=== PATIENT | female | born 1930 | race Hispanic/Latino ===

== ENCOUNTER 2018-03-03 15:31 | Emergency (ER) | payer OTHER ==
--- OUTSIDE RECORDS SUMMARY | 2018-03-03 15:33 | XMS REPORT | Clinical Summary ---
:1930 Author Organization [facility] Address [address] [place] [address] Care Team Providers Name Role Phone Salvatore Goldsmith MD Primary Care Provider Allergies Active Allergy Reactions Severity Noted Date Comments Codeine Hives High 11/07/2016 Fenofibrate 11/09/2016 dizziness Hydrocodone 11/09/2016 dizziness Penicillins Itching 11/09/2016 Current Medications Prescription Sig. Disp. Refills Start Date End Date Status lovastatin (MEVACOR) 20 Take 20 mg by mouth Active MG tablet every morning. metoprolol tartrate Take 50 mg by mouth Active (LOPRESSOR) 50 mg tablet 2 (two) times a day. valsartan (DIOVAN) 320 MG Take 320 mg by Active tablet mouth every morning. [id number]-lycopen-l Take 1 tablet by Active utein (CENTRUM SILVER) mouth every 0.4-300-250 mg-mcg-mcg morning. tablet amLODIPine (NORVASC) 5 mg Take 5 mg by mouth Active tablet daily. Active Problems Problem Noted Date Left renal mass 11/22/2016 Social History Tobacco Use Types Packs/Day Years Used Date Never Smoker Smokeless Tobacco: Never Used Alcohol Use Drinks/Week oz/Week Comments No Sex Assigned at Date Recorded Not on file Last Filed Vital Signs Not on file Plan of Treatment Health Maintenance Due Date Last Done Comments SHINGRIX VACCINE (#1) 1979 ZOSTER VACCINE 1989 PNEUMOCOCCAL POLYSACCHARIDE VACCINE AGE 65 AND OVER 1994 PNEUMOCOCCAL-13 1994 INFLUENZA VACCINE 04/16/2018 Implants Implanted Type Area Associate Professor Of Art Device Expiration Model / Identifier Date Serial / Lot Clip Heena [employer] [facility] - [id number] Surgical N/A: N/A WECK CLOSURE [id number] / Implanted: 11/22/2016 (Quantity not on file) Implants; SYSTEMS / Expanders; Extenders; Surgical Wires Results Not on fileafter 03/02/2017 Insurance Payer Benefit Plan / Group Subscriber ID Type Phone Address [facility] xxxxxxxxx HMO [phone] [facility] [address] [place] [id number]
--- NOTE | 2018-03-03 16:28 | RAD REPORT ---
EXAM DESCRIPTION: CT - [id number] - 03/03/2018 3:58 pm CLINICAL HISTORY: Fall, head, neck and facial trauma COMPARISON: CT head and cervical January 2013, MRI January 2013 TECHNIQUE: Axial 5 mm thick images of the head were obtained. Axial 2 mm thick images of the cervic al spine were obtained with sagittal and coronal reconstruction images generated and reviewed. All CT scans are performed using dose optimization technique as appropriate and may include automated exposure control or mA/KV adjustment according to patient size. FINDINGS: No intracranial hemorrhage, new mass, edema or acute intracranial finding. No acute cortic al based infarction. No cortical edema or sulcal effacement. No extra-axial fluid collections. Mastoi d air cells are clear. Facial bones , orbital contents and sinuses are separately detailed. Approxima tely 22 x 13 millimeter supra sella hyperdense masses present. This is not a new finding. 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 Size may have increased fractionally from prior imaging. No new ma ss effect in this region. Patient has underlying atrophy and chronic ischemic change. Cervical bodies are normal in height. No fracture or acute cervical body finding. No new alignment ab normality. Slight retrolisthesis of C5 on C6 is a chronic finding. Significant C5-6 and C6-7 disc spa ce narrowing present. Uncovertebral joint hypertrophy present. There is significant bilateral foramin al stenosis at C5-6 with spinal stenosis down to 6 mm. Bilateral foraminal stenosis present at C6-7. Thickening and calcification of the transverse ligament posterior to the dens noted. More mild forami nal bony stenosis present at C4-5. Central canal detail is inherently limited. No paraspinal mass or hematoma. IMPRESSION: No hemorrhage, mass or acute intracranial finding. Atrophy and chronic ischemic changes are present. Approximately 22 x 13 mm supra sella mass measuring similar to slightly larger than 2013. 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 Size change, if true, is minimal from 2013. No fracture or acute cervical spine finding. Significant spinal stenosis at C5-6 with multiple level s showing significant bony foraminal stenosis. Degenerative changes are not substantially different f rom 2013. Facial bones, sinuses and orbits are separately detailed.
--- NOTE | 2018-03-03 16:33 | RAD REPORT ---
EXAM DESCRIPTION: CT - Facial Bones W/ Mpr - 03/03/2018 3:58 pm CLINICAL HISTORY: Fall, facial trauma COMPARISON: CT head and cervical same date TECHNIQUE: Axial 2 millimeter thick images of the facial bones were obtained with sagittal and coron al reconstruction imaging. All CT scans are performed using dose optimization technique as appropriate and may include automated exposure control or mA/KV adjustment according to patient size. FINDINGS: Mastoid air cells are clear. No fracture of the skullbase identifiable. Left zygomatic arc h is intact. Condyles of the mandible is normally positioned on the left. No orbital wall fracture id entifiable. There is fracture of the lateral wall maxillary sinus near the orbital floor. There is an air-fluid level in the left maxillary sinus. The there is buckling inward of the anterior wall of th e maxillary sinus on the left. No acute nasal septum finding. Medial sinus wall is intact. No displac ed nasal bone fracture. No globe or orbital content acute finding. There is significant left maxilla and periorbital contusion. No foreign body. No fracture of the mandible. Condyles are normally positioned. IMPRESSION: Anterior and lateral left maxillary sinus wall fractures with blood in the sinus. No orbital wall fracture confirmed in the zygomatic arch is intact on the left. Significant contusion and edema changes of the left maxilla and periorbital soft tissues.
[2018-03-03] MEDS ORDERED: NA CHLORIDE 0.9% 0 ML ONE (16:35)
[2018-03-03 16:44] LABS: Absolute Lymphocytes (CBC) 2.6 K/uL (0.7-4.9); Absolute Monocytes 0.9 K/uL (0.1-1.3); Absolute Neutrophil 3.7 K/uL (1.8-8.0); Basophils % 0.7 % (0-1.3); Eosinophils % 1.5 % (0-4.4); Hematocrit 34.1 % (36.0-45.0); Lymphocytes % 35.5 % (15.3-44.8); MCH 30.8 pg (27.0-35.0); MCV 90.2 fL (80-100); MPV 8.6 fL (7.6-11.3); Monocytes % 11.7 % (3.3-12.3); RBC Red Blood Cell Count 3.78 M/uL (3.86-4.86)
[2018-03-03] MEDS ORDERED: METOPROLOL TAR 50 MG TAB ONE (16:45)
[2018-03-03] MEDS ORDERED: AMOX/K CLAV 875 MG TAB ONE (16:46)
[2018-03-03] MEDS ORDERED: LIDOCAINE 1% MPF 2 ML AMPULE ONE (16:46)
[2018-03-03] MEDS ORDERED: TETANUS & DIPHTHERIA TOX,ADULT 0.5 ML VIAL ONE (16:46)
[2018-03-03 16:48] LABS: Protime INR 0.93
[2018-03-03] MEDS ORDERED: CLINDAMYCIN HCL 150 MG CAP ONE (16:48)
--- NOTE | 2018-03-03 16:55 | RAD REPORT ---
EXAM DESCRIPTION: RAD - Chest Single View - 03/03/2018 4:21 pm CLINICAL HISTORY: Fall, chest pain COMPARISON: October 2017 TECHNIQUE: AP portable chest image was obtained 1601 hours . FINDINGS: No pulmonary contusion or acute lung parenchymal process. Heart and vasculature are normal . No measurable pleural effusion and no pneumothorax. Old rib trauma noted in the right-sided chest. Granuloma seen mid left lung field. An acute bone process is not suspected. No acute aortic findings suspected. IMPRESSION: No acute cardiopulmonary process. No significant change from comparison.
--- NOTE | 2018-03-03 16:55 | RAD REPORT ---
EXAM DESCRIPTION: RAD - Pelvis - 03/03/2018 4:21 pm CLINICAL HISTORY: Fall, pelvic and hip pain COMPARISON: None. TECHNIQUE: AP imaging of the pelvis was obtained. FINDINGS: No pelvic fracture. No fracture or dislocation of either proximal femur. Minimal SI joint degenerative change present. Phleboliths are seen in the left side pelvis. No suspicious soft tissue finding. IMPRESSION: Negative pelvis for acute or significant finding.
--- NOTE | 2018-03-03 16:57 | RAD REPORT ---
EXAM DESCRIPTION: RAD - Humerus Left - 03/03/2018 4:21 pm CLINICAL HISTORY: Fall, shoulder and arm pain COMPARISON: None. FINDINGS: No fracture is identified. There is no dislocation or periosteal reaction noted. No forei gn body or other soft tissue abnormality. IMPRESSION: Negative left humerus examination.
[2018-03-03 16:58] LABS: Urine Blood TRACE (NEG); Urine Glucose NEGATIVE (NEG); Urine Protein 1+ (NEG); Urine Specific Gravity 1.015 (1.005-1.030); Urine pH 5.5 (5.0-7.0)
--- NOTE | 2018-03-03 16:58 | RAD REPORT ---
EXAM DESCRIPTION: RAD - Hand Left 3 View - 03/03/2018 4:21 pm CLINICAL HISTORY: Fall, hand pain COMPARISON: None. FINDINGS: No fracture, dislocation or periosteal reaction noted. No acute or destructive bone proces s. Patient has advanced degenerative change involving the third MCP joint. Degenerative calcification s are seen in the triangular fibrocartilage. Elsewhere IP joint degenerative changes are present with out erosive or destructive component. No air or foreign body in the soft tissues. IMPRESSION: Degenerative changes are present most notable at the third MCP joint. No fracture or acute finding seen.
--- NOTE | 2018-03-03 17:55 | EDPHYS ---
Physician Documentation [facility] Name: Estephania Denise Age: 87 yrs Sex: Female : 1930 Arrival Date: 03/03/2018 Time: 15:36 Bed 17 Private MD: ED Physician Gil Ruvalcaba HPI: 03/03 15:45 This 87 yrs old Female presents to ER via EMS with complaints of Head Injury cp Without LOC-Adult, Laceration To Head. 15:45 The patient or guardian reports injury, a laceration. The complaints affect the left cp cheek and left latter day. Context of injury: resulted from slip and fall on wet surface. Onset: The symptoms/episode began/occurred just prior to arrival. Associated signs and symptoms: Loss of consciousness: This patient did not experience any loss of consciousness. Historical: - Allergies: 15:40 Codeine; sv 15:40 PENICILLINS; sv - Home Meds: 15:44 metoprolol tartrate 50 mg Oral tab 1 tab 2 times per day [Active]; lovastatin 20 mg tw2 Oral tab 1 tab once daily [Active]; amlodipine 5 mg tab 1 tab once daily [Active]; valsartan 320 mg oral tab 1 tab once daily [Active]; gemfibrozil 600 mg Oral tab 1 tab 2 times per day [Active]; - PMHx: 15:40 Hypertension; sv 15:44 Hyperlipidemia; tw2 - Immunization history:: Adult Immunizations up to date. - Social history:: Smoking status: Patient/guardian denies using tobacco. - Immunization history: Last tetanus immunization: unknown. - Ebola Screening: : No symptoms or risks identified at this time. ROS: 15:50 Constitutional: Negative for body aches, chills, fever, poor PO intake. cp 15:50 Eyes: Negative for injury, pain, redness, and discharge. cp 15:50 ENT: Negative for drainage from ear(s), sore throat, difficulty swallowing, difficulty handling secretions. 15:50 Cardiovascular: Negative for chest pain, edema, palpitations. 15:50 Respiratory: Negative for cough, shortness of breath, wheezing. 15:50 Abdomen/GI: Negative for abdominal pain, nausea, vomiting, and diarrhea, constipation, black/tarry stool, rectal bleeding. 15:50 MS/extremity: Positive for pain, of the left arm, Negative for deformity, paresthesias. 15:50 Neuro: Negative for altered mental status, headache, loss of consciousness. 15:50 All other systems are negative. Exam: 16:02 Constitutional: The patient appears in no acute distress, alert, awake, cp non-diaphoretic, non-toxic, well developed, well nourished. 16:02 Eyes: Pupils equal round and reactive to light, extra-ocular motions intact. Lids and cp lashes normal. Conjunctiva and sclera are non-icteric and not injected. Cornea within normal limits. Left lower orbital area with swelling, edema, tenderness 16:02 Head/face: Noted is ecchymosis, that is mild, of the left cheek, a laceration(s), that is deep, that is linear, of the lateral to left eye, swelling, that is mild, of the left cheek, tenderness, that is moderate, of the left cheek, Sinus tenderness, that is moderate, is located over the left maxillary sinus. 16:02 ENT: External ear(s): are unremarkable, Ear canal(s): are normal, clear, TM's: bulging, is not appreciated, bilaterally, dullness, bilaterally, erythema, is not appreciated, bilaterally, Nose: is normal, Mouth: Lips: moist, Oral mucosa: pink and intact, moist, Posterior pharynx: is normal, airway is patent, no erythema, no exudate, Dental exam: no acute changes, Voice: is normal. 16:02 Neck: C-spine: C-collar placed in ED, vertebral tenderness, is not appreciated, crepitus, is not appreciated, ROM/movement: limited range of motion, is not appreciated, nuchal rigidity, is not appreciated. 16:02 Chest/axilla: Inspection: normal, Palpation: is normal, no crepitus, no tenderness. 16:02 Cardiovascular: Rate: normal, Rhythm: regular, Pulses: Pulses are 2+ in right radial artery and left radial artery. Edema: is not appreciated, JVD: is not appreciated. 16:02 Respiratory: the patient does not display signs of respiratory distress, Respirations: normal, no use of accessory muscles, no retractions, no splinting, no tachypnea, Breath sounds: are clear throughout, no decreased breath sounds, no stridor, no wheezing. 16:02 Abdomen/GI: Inspection: abdomen appears normal, Bowel sounds: active, all quadrants, Palpation: abdomen is soft and non-tender, in all quadrants, rebound tenderness, is not appreciated, voluntary guarding, is not appreciated, involuntary guarding, is not appreciated. 16:02 Back: pain, is absent, ROM is normal, vertebral tenderness, is not appreciated, Straight leg raises: of both lower extremities does not illicit pain. 16:02 Musculoskeletal/extremity: Extremities: grossly normal except: noted in the left upper arm: tenderness, There is no evidence of deformity, Sensation intact. Joints: All joints are normal except the left shoulder displays painful range of motion, tenderness. 16:02 Skin: cellulitis, is not appreciated, no rash present. 16:02 Neuro: Orientation: to person, place \T\ time. Mentation: lucid, able to follow commands, Cerebellar function: is grossly normal, Sensation: no obvious gross deficits. 16:32 ECG was reviewed by the Attending Physician. cp Vital Signs: 15:40 BP 204 / 84; Pulse 81; Resp 18; Temp 97.7; Pulse Ox 97% ; Weight 62.14 kg; Height 5 ft. sv 0 in. (152.40 cm); Pain 4/10; 16:48 BP 199 / 81; Pulse 88; Resp 18; Temp 97.8; Pulse Ox 98% ; sv 17:15 BP 193 / 80; Pulse 74; Resp 18; Pulse Ox 99% ; sv 18:11 BP 190 / 84; Pulse 61; Resp 18; Temp 97.8; Pulse Ox 99% ; sv 15:40 Body Mass Index 26.76 (62.14 kg, 152.40 cm) sv 16:48 Pt just returned from CT and xray. sv 18:11 Informed Gil QUICK of vitals, ok to discharge. sv Cotter Coma Score: 15:40 Eye Response: spontaneous(4). Verbal Response: oriented(5). Motor Response: obeys sv commands(6). Total: 15. 16:48 Eye Response: spontaneous(4). Verbal Response: oriented(5). Motor Response: obeys sv commands(6). Total: 15. Trauma Score (Adult): 15:40 Eye Response: spontaneous(1); Verbal Response: oriented(1); Motor Response: obeys sv commands(2); Systolic BP: > 89 mm Hg(4); Respiratory Rate: 10 to 29 per min(4); Cotter Score: 15; Trauma Score: 12 16:48 Eye Response: spontaneous(1); Verbal Response: oriented(1); Motor Response: obeys sv commands(2); Systolic BP: > 89 mm Hg(4); Respiratory Rate: 10 to 29 per min(4); Peggy Score: 15; Trauma Score: 12 Laceration: 17:25 Wound Repair of 2.5cm ( 1.0in ) subcutaneous laceration to left latter day. Linear shaped.. cp Distal neuro/vascular/tendon intact. Anesthesia: Wound infiltrated with 4 mls of 1% lidocaine w/ Epi. Wound prep: Moderate cleansing by me. Skin closed with 6-0 Prolene using interrupted sutures and sterile technique. Dressed with Bacitracin, bandaid. Patient tolerated well. MDM: 15:38 Patient medically screened. [facility] 17:50 Data reviewed: vital signs, nurses notes, lab test result(s), EKG, radiologic studies, cp CT scan, plain films. 17:50 Test interpretation: by ED physician or midlevel provider: ECG. Response to treatment: the patient's symptoms have markedly improved after treatment, and as a result, I will discharge patient. 03/03 15:41 Order name: Basic Metabolic Panel; Complete Time: 17:21 03/03 17:22 Interpretation: Normal except: BUN 38; CRE 1.69; GFR 29. 03/03 15:41 Order name: CBC with Diff; Complete Time: 17:21 03/03 17:22 Interpretation: Normal except: RBC 3.78; HGB 11.7; HCT 34.1. 03/03 15:41 Order name: Creatinine for Radiology; Complete Time: 17:21 03/03 15:43 Order name: PT-INR; Complete Time: 17:21 03/03 15:43 Order name: Ptt, Activated; Complete Time: 17:21 03/03 15:41 Order name: CT Head C Spine; Complete Time: 17:21 03/03 17:23 Interpretation: Reviewed report. 03/03 15:41 Order name: CT Facial Bones W/O Con; Complete Time: 17:21 03/03 17:23 Interpretation: Report reviewed. 03/03 15:41 Order name: XRAY Chest (1 view); Complete Time: 17:21 cp 06/18 15:41 Order name: XRAY Pelvis; Complete Time: 17:21 cp /18 17:24 Interpretation: Report reviewed. cp /18 15:41 Order name: XRAY Humerus LEFT; Complete Time: 17:21 cp /18 17:24 Interpretation: Report reviewed. cp /18 15:41 Order name: XRAY Hand LEFT 3 View; Complete Time: 17:21 cp /18 17:23 Interpretation: Report reviewed. cp /18 16:51 Order name: Urine Dipstick--Ancillary (enter results); Complete Time: 17:21 bd 18 15:38 Order name: C-Collar; Complete Time: 15:39 tw2 03/03 15:41 Order name: Labs collected and sent; Complete Time: 16:40 cp /18 15:41 Order name: Urine Dipstick-Ancillary (obtain specimen); Complete Time: 16:40 cp 18 15:42 Order name: EKG; Complete Time: 15:42 cp 18 15:42 Order name: EKG - Nurse/Tech; Complete Time: 17:08 cp /18 16:43 Order name: Prolene, Sutures; Complete Time: 16:58 cp /18 16:43 Order name: Dressing - Wound; Complete Time: 17:46 cp /18 16:43 Order name: Gloves, Sterile; Complete Time: 16:58 cp /18 16:43 Order name: Setup Suture Tray; Complete Time: 16:58 cp /18 17:37 Order name: Misc. Order: ambulate patient; Complete Time: 17:46 cp EC:32 Rate is 74 beats/min. Rhythm is regular. FL interval is normal. QRS interval is normal. cp QT interval is normal. No ST changes noted. Interpreted by me. Reviewed by me. Administered Medications: 16:35 Not Given (Physician Discretion): morphine 2 mg IVP once; if needed for pain iw 16:36 Not Given (Physician Discretion; IV infiltration): NS 0.9% 250 ml IV at bolus once iw 16:36 Not Given (Physician Discretion; IV infiltration ): NS 0.9% 1000 ml IV at 75 ml/hr iw continuous 16:36 Not Given (Physician Discretion): Zofran 4 mg IVP once; over 2 minutes iw 16:57 Drug: Clindamycin 300 mg Route: PO; sv 17:06 Follow up: Response: No adverse reaction sv 16:58 Drug: Tetanus-Diphtheria Toxoid Adult 0.5 ml {Three Knife Trimmer: [place]. Exp: sv 05/15/2020. Lot #: [id number]. } Route: IM; Site: right deltoid; 17:06 Follow up: Response: No adverse reaction sv 16:58 Drug: Metoprolol TARTRATE (Lopressor) 50 mg Route: PO; sv 17:07 Follow up: Response: No adverse reaction sv 17:06 Drug: Lidocaine-Epinephrine -1%: (1:100,000) 5 ml {Note: given to Gil QUICK for sv procedure.} Volume: 20 ml; Route: Infiltration; Disposition: 03/04 06:54 Co-signature as Attending Physician, Gil Ruvalcaba MD I agree with the assessment and lion plan of care. Disposition: 03/03/18 17:54 Discharged to Home. Impression: Other slipping, tripping and stumbling and falls, Maxillary fracture, unspecified, Laceration w/o foreign body of face. - Condition is Stable. - Discharge Instructions: Head Injury, Adult, Fall Prevention and Home Safety, Facial Laceration. - Prescriptions for Clindamycin HCl 300 mg Oral Capsule - take 1 capsule by ORAL route every 6 hours for 10 days; 40 capsule. - Medication Reconciliation Form, Thank You Letter, Antibiotic Education, Prescription Opioid Use form. - Follow up: Tiara Denise MD; When: 1 - 2 days; Reason: left maxillary sinus fracture. - Problem is new. - Symptoms have improved. - Notes: no sneezing or blowing nose Signatures: Dispatcher [employer] EDAK Tiara Singh, Gil Llanos RN, MD MD cha Page, Corey, PA PA cp Wise, Tara, RN RN tw2 May Rizvi RN iw Corrections: (The following items were deleted from the chart) 03/03 16:54 15:41 TYPE AND SCREEN+[id number] ordered. EDAK EDMS 17:31 17:25 Dressing - Wound ordered. [facility] 18:13 17:54 03/03/2018 17:54 Discharged to Home. Impression: Other slipping, tripping and sv stumbling and falls; Maxillary fracture, unspecified; Laceration w/o foreign body of face. Condition is Stable. Forms are Medication Reconciliation Form, Thank You Letter, Antibiotic Education, Prescription Opioid Use. Follow up: Tiara Denise; When: 1 - 2 days; Reason: left maxillary sinus fracture. Problem is new. Symptoms have improved. cp
--- NOTE | 2018-03-03 17:55 | ER ---
Nurse's Notes [facility] Name: Estephania Denise Age: 87 yrs Sex: Female : 1930 Arrival Date: 03/03/2018 Time: 15:36 Bed 17 Private MD: Diagnosis: Other slipping, tripping and stumbling and falls;Maxillary fracture, unspecified;Laceration w/o foreign body of face Presentation: 03/03 15:26 Presenting complaint: EMS states: tripped and fell on the wet concrete outside. sv Laceration to the left temporal area, with bruising and hematoma noted there and under the left eye. Denies LOC. c/o pain to the left shoulder and arm. BP 191/95 HR 82 RR 20 98% RA, BS-139. Transition of care: patient was not received from another setting of care. Onset of symptoms was March 03, 2018. 15:26 Method Of Arrival: EMS: [facility] sv 15:26 Acuity: JOE 3 sv 15:26 Mechanism of Injury: Fall from standing position. Trauma event details: Injury occurred sv in the [facility], Injury occurred: in a public building. Injury occurred: March 03, 2018. 15:27 Risk Assessment: Do you want to hurt yourself or someone else? Patient reports no sv desire to harm self or others. Initial Sepsis Screen: Does the patient meet any 2 criteria? No. Patient's initial sepsis screen is negative. Does the patient have a suspected source of infection? No. Patient's initial sepsis screen is negative. Care prior to arrival: gauze and tape applied to the left temporal area by EMS. Triage Assessment: 15:30 General: Appears in no apparent distress. comfortable, Behavior is calm, cooperative, sv appropriate for age. Pain: Complains of pain in left eye, left yarsanism and left arm Pain currently is 4 out of 10 on a pain scale. EENT: No signs and/or symptoms were reported regarding the EENT system. Neuro: Level of Consciousness is awake, alert, obeys commands, Oriented to person, place, time, situation, Moves all extremities. Speech is normal. Respiratory: Respiratory effort is even, unlabored, Respiratory pattern is regular, symmetrical. Derm: Skin is pink, warm \T\ dry. Bruising that is dark purple, on left eye. Musculoskeletal: Range of motion: intact in all extremities. Injury Description: Laceration sustained to left yarsanism is 0.5 to 2.5 cm long, not bleeding, no active bleeding noted at this time. Trauma Activation: Not Applicable Physician: ED Physician; Name: ; Notified At: ; Arrived At: Physician: General Surgeon; Name: ; Notified At: ; Arrived At: Physician: Radiology; Name: ; Notified At: ; Arrived At: Physician: Respiratory; Name: ; Notified At: ; Arrived At: Physician: Lab; Name: ; Notified At: ; Arrived At: Historical: - Allergies: 15:40 Codeine; sv 15:40 PENICILLINS; sv - Home Meds: 15:44 metoprolol tartrate 50 mg Oral tab 1 tab 2 times per day [Active]; lovastatin 20 mg tw2 Oral tab 1 tab once daily [Active]; amlodipine 5 mg tab 1 tab once daily [Active]; valsartan 320 mg oral tab 1 tab once daily [Active]; gemfibrozil 600 mg Oral tab 1 tab 2 times per day [Active]; - PMHx: 15:40 Hypertension; sv 15:44 Hyperlipidemia; tw2 - Immunization history:: Adult Immunizations up to date. - Social history:: Smoking status: Patient/guardian denies using tobacco. - Immunization history: Last tetanus immunization: unknown. - Ebola Screening: : No symptoms or risks identified at this time. Screenin:44 Abuse screen: Denies threats or abuse. Denies injuries from another. Nutritional sv screening: No deficits noted. Tuberculosis screening: No symptoms or risk factors identified. Fall Risk None identified. Primary Survey: 15:26 A: Airway: patent. Breathing/Chest: Respiratory pattern: regular, Respiratory effort: tw2 spontaneous, unlabored, Breath sounds: clear, Chest inspection: symmetrical rise and fall of the chest. Circulation: Heart tones present. Skin temperature: warm. Disability Alert. 16:48 A: Airway: patent. A: room air. Breathing/Chest: Respiratory pattern: regular. tw2 Breathing/Chest: Respiratory pattern: regular, Respiratory effort: spontaneous, unlabored, Breath sounds: clear, Chest inspection: symmetrical rise and fall of the chest. Circulation: Heart tones present. Skin temperature: warm, dry. Reassessment Airway Airway Patent Breathing/Chest Respiratory pattern Regular Respiratory effort Spontaneous Unlabored Breath sounds Clear Chest inspection Symmetrical Circulation Heart tones Present Temperature Warm Dry Disability Alert. Secondary Survey: 15:26 HEENT: Eyes: Edema noted left lower eyelid and left eye. Gastrointestinal: No deficits tw2 noted. Gastrointestinal: Abdomen is soft, Bowel sounds present in all quadrants. : No signs and/or symptoms were reported regarding the genitourinary system. Musculoskeletal: Range of motion: intact in all extremities. Injury Description: Laceration sustained to left supraorbital ridge and left yarsanism. Assessment: 15:44 Reassessment: See triage assessment. sv 16:58 Reassessment: Ok by Gil QUICK to remove C-collar. sv 16:59 Reassessment: Patient appears in no apparent distress at this time. No changes from previously documented assessment. Patient and/or family updated on plan of care and expected duration. Pain level reassessed. Patient is alert, oriented x 3, equal unlabored respirations, skin warm/dry/pink. Gil QUICK at bedside to repair laceration. 17:45 Reassessment: Pt ambulated around Pod 2. Pt denies dizziness while ambulating. sv 18:02 Reassessment: Patient appears in no apparent distress at this time. Patient and/or sv family updated on plan of care and expected duration. Pain level reassessed. Patient is alert, oriented x 3, equal unlabored respirations, skin warm/dry/pink. Pt ambulated to the bathroom with daughter, no difficulty noted. 18:11 Reassessment: Instructed pt and daughter to make a BP log and to follow up with her PCP robe regarding her BP to see if medications need to be adjusted. Informed pt and daughter to follow up with an ENT MD as well regarding the fracture. Vital Signs: 15:40 BP 204 / 84; Pulse 81; Resp 18; Temp 97.7; Pulse Ox 97% ; Weight 62.14 kg; Height 5 ft. sv 0 in. (152.40 cm); Pain 4/10; 16:48 BP 199 / 81; Pulse 88; Resp 18; Temp 97.8; Pulse Ox 98% ; sv 17:15 BP 193 / 80; Pulse 74; Resp 18; Pulse Ox 99% ; sv 18:11 BP 190 / 84; Pulse 61; Resp 18; Temp 97.8; Pulse Ox 99% ; sv 15:40 Body Mass Index 26.76 (62.14 kg, 152.40 cm) sv 16:48 Pt just returned from CT and xray. sv 18:11 Informed Gil QUICK of vitals, ok to discharge. sv [place] Coma Score: 15:40 Eye Response: spontaneous(4). Verbal Response: oriented(5). Motor Response: obeys sv commands(6). Total: 15. 16:48 Eye Response: spontaneous(4). Verbal Response: oriented(5). Motor Response: obeys sv commands(6). Total: 15. Trauma Score (Adult): 15:40 Eye Response: spontaneous(1); Verbal Response: oriented(1); Motor Response: obeys sv commands(2); Systolic BP: > 89 mm Hg(4); Respiratory Rate: 10 to 29 per min(4); Peggy Score: 15; Trauma Score: 12 16:48 Eye Response: spontaneous(1); Verbal Response: oriented(1); Motor Response: obeys sv commands(2); Systolic BP: > 89 mm Hg(4); Respiratory Rate: 10 to 29 per min(4); [place] Score: 15; Trauma Score: 12 ED Course: 15:30 Patient maintains SpO2 saturation greater than 95% on room air. Thermoregulation: warm sv blanket given to patient. 15:33 Rigid cervical collar applied and checked by physician. tw2 15:36 Patient arrived in ED. iw 15:36 Tiara Singh, HILARY is Primary Nurse. sv 15:37 Gil Reed PA is PHCP. cp 15:37 Gil Ruvalcaba MD is Attending Physician. cp 15:39 Triage completed. sv 15:41 Arm band placed on right wrist. sv 15:44 Patient has correct armband on for positive identification. Placed in gown. Bed in low sv position. Call light in reach. Side rails up X2. Pulse ox on. NIBP on. Door closed. Warm blanket given. Head of bed elevated. 15:[address] via stretcher. sv 15:54 CT completed. Patient tolerated procedure well. Patient moved to CT via stretcher. sj Patient taken to ultrasound. Patient moved back from CT. 15:59 CT Head C Spine In Process Unspecified. EDMS 15:59 CT Facial Bones W/O Con In Process Unspecified. EDMS 16:20 XRAY Chest (1 view) In Process Unspecified. EDMS 16:20 XRAY Pelvis In Process Unspecified. EDMS 16:20 XRAY Humerus LEFT In Process Unspecified. EDMS 16:20 XRAY Hand LEFT 3 View In Process Unspecified. EDMS 16:20 Patient moved back from radiology. mh1 16:30 Initial lab(s) drawn, by me, sent to lab. Missed attempt(s): 22 gauge in left forearm. sv Bleeding controlled, band aid applied, catheter tip intact. 16:33 EKG done, by histotechnologist. reviewed by Gil QUICK. at1 17:15 Maggi Acosta, RN is Primary Nurse. sv 17:30 Assist provider with laceration repair on left yarsanism that was 2.5 cm. or less using sv sutures. Set up tray. Performed by Gil QUICK Dressed with 4X4s, Neosporin, Patient tolerated well. Patient did not have IV access during this emergency room visit. 17:52 Tiara Denise MD is Referral Physician. cp Administered Medications: 16:35 Not Given (Physician Discretion): morphine 2 mg IVP once; if needed for pain iw 16:36 Not Given (Physician Discretion; IV infiltration): NS 0.9% 250 ml IV at bolus once iw 16:36 Not Given (Physician Discretion; IV infiltration ): NS 0.9% 1000 ml IV at 75 ml/hr iw continuous 16:36 Not Given (Physician Discretion): Zofran 4 mg IVP once; over 2 minutes iw 16:57 Drug: Clindamycin 300 mg Route: PO; sv 17:06 Follow up: Response: No adverse reaction sv 16:58 Drug: Tetanus-Diphtheria Toxoid Adult 0.5 ml {[employer]: [employer]. Exp: sv 05/15/2020. Lot #: [id number]. } Route: IM; Site: right deltoid; 17:06 Follow up: Response: No adverse reaction sv 16:58 Drug: Metoprolol TARTRATE (Lopressor) 50 mg Route: PO; sv 17:07 Follow up: Response: No adverse reaction sv 17:06 Drug: Lidocaine-Epinephrine -1%: (1:100,000) 5 ml {Note: given to Gil QUICK for sv procedure.} Volume: 20 ml; Route: Infiltration; Intake: 15:40 PO: 0ml; Total: 0ml. sv 16:48 PO: 0ml; Total: 0ml. sv Output: 15:40 Urine: 0ml; Total: 0ml. sv 16:48 Urine: 100ml (Voided); Total: 100ml. sv Outcome: 17:16 Patient's length of stay in the Emergency Department was greater than 2 hours. due to sv ABDELRAHMAN performing laceration repair at this time.Patient's length of stay extended due to 17:54 Discharge ordered by MD. cp 17:59 Discharged to home via wheelchair, with family. sv 17:59 Condition: stable 17:59 Discharge instructions given to patient, family, Instructed on discharge instructions, follow up and referral plans. medication usage, wound care, Demonstrated understanding of instructions, follow-up care, medications, wound care, Prescriptions given X 1. 18:13 Patient left the ED. sv Signatures: Dispatcher [employer] EDMS Tiara Singh, RN RN sv Vani Beck mh1 Riya Camacho Irene, RN RN iw Lili tran, solid state tester EKG Tat1 Gil Reed PA PA cp Wise, Tara RN RN tw2 Corrections: (The following items were deleted from the chart) 17:14 16:48 BP 199 / 81; Pulse 88bpm; Resp 18bpm; Pulse Ox 98%; sv sv
[2018-03-03 19:33] VITALS: TEMP 97.8
[2018-03-03 19:35] VITALS: O2SAT 99
[2018-03-03 19:36] VITALS: BP 190/84
--- NOTE | 2018-03-03 20:36 | EKG ---
Test Date: 2018-03-03 Test Time: 16:26:48 Professor Of Theatre: KM MEASUREMENT RESULTS: Intervals: Rate: 74 WA: 184 QRSD: 98 QT: 380 QTc: 421 [place]: P: 49 WA: 184 QRS: -9 T: 34 INTERPRETIVE STATEMENTS: Normal sinus rhythm Voltage criteria for left ventricular hypertrophy Inferior infarct, age undetermined Abnormal ECG Compared to ECG 01/29/2013 14:10:16 Left ventricular hypertrophy now present Myocardial infarct finding now present Sinus bradycardia no longer present First degree AV block no longer present T-wave abnormality no longer present Electronically Signed On 03-03-18 20:35:45 CDT by Eze Plata
== END 2018-03-03 18:13 | disposition home or self-care (01) ==
LOC: ER 15:31
PROC: 0JQ10ZZ Repair Face Subcutaneous Tissue and Fascia, Open Approach (ICD-10-PCS; principal; 2018-03-03)
DX: S01.81XA Laceration without foreign body of other part of head, initial encounter (principal); S02.401A Maxillary fracture, unspecified side, initial encounter for closed fracture; W01.0XXA Fall on same level from slipping, tripping and stumbling without subsequent striking against object, initial encounter; Y93.9 Activity, unspecified; Y92.009 Unspecified place in unspecified non-institutional (private) residence as the place of occurrence of the external cause; Z23 Encounter for immunization; Z88.0 Allergy status to penicillin; Z88.5 Allergy status to narcotic agent; I10 Essential (primary) hypertension; E78.5 Hyperlipidemia, unspecified
CPT/HCPCS: 36415; 70450; 70486; 71045; 72125; 72170; 76377; 80048; 81003; 85025; 85610; 85730; 90714; 93005; 99285; J2001